=== PATIENT | female | born 1975 | race African-American/Black ===

== ENCOUNTER 2021-02-22 16:43 | Emergency (ER) | payer MEDICAID, OTHER ==
[~2021-02-22] VITALS: Ht 167.6 cm; Wt 72.6 kg
[~2021-02-22 16:43] MED LIST: BIRTH CONTROL
[2021-02-22] MEDS ORDERED: cloNIDine HCL 0.1 MG TAB PO ONE (17:15)
[2021-02-22] MEDS ORDERED: ASPirin 81 mg TAB PO ONE (17:30)
[2021-02-22 19:49] VITALS: BP 190/129
== END 2021-02-22 22:10 | disposition left against medical advice (07) ==
LOC: ER 16:43
DX: I16.0 Hypertensive urgency (principal); I10 Essential (primary) hypertension; F17.210 Nicotine dependence, cigarettes, uncomplicated; F12.10 Cannabis abuse, uncomplicated
CPT/HCPCS: 93005